=== PATIENT | female | born 1955 | race Two or more races ===

== ENCOUNTER 2021-04-17 13:14 | Inpatient (IN) | payer OTHER ==
[~2021-04-17] VITALS: Ht 160 cm; Wt 90.7 kg
[2021-04-17] MEDS ORDERED: COZAAR100 MG PO (13:44)
[2021-04-17] MEDS ORDERED: METOCLOPRAMIDE10 GM MC (13:45)
[2021-04-19] MEDS ORDERED: HYDRODIURIL12.5 MG (14:45)
[2021-04-19] MEDS ORDERED: DOXAZOSIN MESYLA1 MG (14:45)
[2021-04-19] MEDS ORDERED: HYDROCORTISONE30 G4 (14:46)
[2021-04-19] MEDS ORDERED: OMEPRAZOLE20 MG (14:46)
[2021-04-19] MEDS ORDERED: LOSARTAN-HCTZ1 EAC2 (14:46)
[2021-04-21] MEDS ORDERED: LASIX20 MG PO (16:25)
[2021-04-21] MEDS ORDERED: INTEGRA PLUS C1 EACH PO (16:25)
[2021-04-21] MEDS ORDERED: LOSARTAN POTAS100 MG PO (16:25)
[2021-04-21] MEDS ORDERED: CARdura 2MG TABLET PO (16:25)
[2021-04-21] MEDS ORDERED: ASA325 M1 PO (16:25)
== END 2021-04-21 17:18 | disposition home or self-care (01) | DRG 292 ==
LOC: ER 13:14 → MEDI 04-18 10:58
PROVIDERS: ADMIT Internal Medicine; ATTEND Internal Medicine
PROC: B24BZZZ Ultrasonography of Heart with Aorta (ICD-10-PCS; principal; 2021-04-18)
DX: I11.0 Hypertensive heart disease with heart failure (principal); J91.0 Malignant pleural effusion; C56.9 Malignant neoplasm of unspecified ovary; I50.9 Heart failure, unspecified; E66.8 Other obesity; Z20.822 Contact with and (suspected) exposure to COVID-19

== ENCOUNTER 2021-05-16 13:51 | Inpatient (IN) | payer OTHER ==
[~2021-05-16] VITALS: Ht 160 cm; Wt 90.7 kg
[~2021-05-16 13:51] MED LIST: ASA325 M1 PO; CARdura 2MG TABLET PO; COZAAR100 MG PO; DOXAZOSIN MESYLA1 MG; HYDROCORTISONE30 G4; HYDRODIURIL12.5 MG; INTEGRA PLUS C1 EACH PO; LASIX20 MG PO; LOSARTAN POTAS100 MG PO; LOSARTAN-HCTZ1 EAC2; METOCLOPRAMIDE10 GM MC; OMEPRAZOLE20 MG
[2021-05-16] MEDS ORDERED: LOSARTAN-HCTZ1 EAC2 PO (15:55)
[2021-05-17] MEDS ORDERED: INTEGRA PLUS C1 EAC1 (16:18)
== END 2021-05-31 12:12 | disposition home or self-care (01) | DRG 737 ==
LOC: O/R 05-17 06:00 → SURH 05-17 13:15 → OB/GYN 05-17 19:29
PROVIDERS: ADMIT Specialist; ATTEND Specialist
PROC: 0UT20ZZ Resection of Bilateral Ovaries, Open Approach (ICD-10-PCS; 2021-05-17)
PROC: 0UT70ZZ Resection of Bilateral Fallopian Tubes, Open Approach (ICD-10-PCS; 2021-05-17)
PROC: 07BC0ZZ Excision of Pelvis Lymphatic, Open Approach (ICD-10-PCS; 2021-05-17)
PROC: 0DBW0ZX Excision of Peritoneum, Open Approach, Diagnostic (ICD-10-PCS; 2021-05-17)
PROC: 0DTJ0ZZ Resection of Appendix, Open Approach (ICD-10-PCS; 2021-05-17)
PROC: 0UT90ZZ Resection of Uterus, Open Approach (ICD-10-PCS; principal; 2021-05-17 13:15)
PROC: 0W993ZZ Drainage of Right Pleural Cavity, Percutaneous Approach (ICD-10-PCS; 2021-05-30)
DX: C56.1 Malignant neoplasm of right ovary (principal); C77.5 Secondary and unspecified malignant neoplasm of intrapelvic lymph nodes; C78.6 Secondary malignant neoplasm of retroperitoneum and peritoneum; J91.0 Malignant pleural effusion; K56.0 Paralytic ileus; I11.0 Hypertensive heart disease with heart failure; I50.9 Heart failure, unspecified; D25.0 Submucous leiomyoma of uterus; D25.1 Intramural leiomyoma of uterus; D25.2 Subserosal leiomyoma of uterus; N72 Inflammatory disease of cervix uteri; N83.292 Other ovarian cyst, left side; E66.9 Obesity, unspecified

== ENCOUNTER 2021-12-01 13:50 | Outpatient (CLI) | payer OTHER ==
[~2021-12-01 13:50] MED LIST changes: +INTEGRA PLUS C1 EAC1; +LOSARTAN-HCTZ1 EAC2 PO
== END 2021-12-01 13:56 | disposition home or self-care (01) ==
LOC: RAD 13:50
PROVIDERS: ATTEND Internal Medicine
DX: M25.561 Pain in right knee (principal); M17.11 Unilateral primary osteoarthritis, right knee

== ENCOUNTER → 2021-12-15 | Outpatient (CLI) | payer OTHER | END | disposition home or self-care (01) | LOC: NUCLEAR 07:41 | PROVIDERS: ATTEND Internal Medicine Hematology & Oncology | DX: C56.1 Malignant neoplasm of right ovary (principal) | CPT/HCPCS: 78812; A9552 ==

== ENCOUNTER 2021-12-19 09:26 | Outpatient (CLI) | payer OTHER | END 2021-12-19 09:34 | disposition home or self-care (01) | LOC: SONOGRAMA 09:26 | PROVIDERS: ATTEND Specialist | DX: N63.11 Unspecified lump in the right breast, upper outer quadrant (principal); N63.21 Unspecified lump in the left breast, upper outer quadrant ==

== ENCOUNTER 2022-01-03 10:43 | Outpatient (CLI) | payer OTHER | END 2022-01-03 10:47 | disposition home or self-care (01) | LOC: SONOGRAMA 10:43 | PROVIDERS: ATTEND Pathology Anatomic Pathology & Clinical Pathology | DX: N63.21 Unspecified lump in the left breast, upper outer quadrant (principal) ==

== ENCOUNTER 2022-02-14 07:23 | Emergency (ER) | payer OTHER ==
[~2022-02-14] VITALS: Ht 160 cm; Wt 90.7 kg
[2022-02-14] MEDS ORDERED: ADALAT CC30 MG PO (07:41)
[2022-02-14] MEDS ORDERED: TOPROL XL100 M1 PO (07:43)
== END 2022-02-14 08:39 | disposition home or self-care (01) ==
LOC: ER 07:23
DX: H60.91 Unspecified otitis externa, right ear (principal); I10 Essential (primary) hypertension

== ENCOUNTER 2022-04-23 10:45 | Inpatient (IN) | payer OTHER ==
[~2022-04-23] VITALS: Ht 160 cm; Wt 199.6 kg
[~2022-04-23 10:45] MED LIST changes: +ADALAT CC30 MG PO; +TOPROL XL100 M1 PO
[2022-04-23] MEDS ORDERED: DOXAZOSIN MESYLA1 MG PO (11:36)
[2022-04-23] MEDS ORDERED: COZAAR100 MG (11:36)
[2022-04-23] MEDS ORDERED: [UNRECOGNIZED DRUG - OTHER] (11:36)
[2022-04-23] MEDS ORDERED: TOPROL XL25 M1 (11:37)
--- NOTE | 2022-04-23 11:40 | NUR ---
SE RECIBE PTE ALERTA Y ORIENTADA X3, CON ESPOSO. PTE VERBALIZA PRIYANKA CAERSE DE CISSE CAMA ESTA MANANA Y HERIRSE EL LADO CASSI DEL CUERPO; MERYL Y GUANAKO. SE LUIS A SV Y SE UBICA.
--- NOTE | 2022-04-23 12:58 | NUR ---
SE RECIBE PTE FEMENINA DE 66 YR ALERTA CONCIENT Y TRANQUILA . ES EVALUADA POR LA DRA. IRVING GOMEZIE ORENA TRATAMIENTO LA CUAL SE EJECUTA POR MS.K.ROSADO MAS . SE ROXANNE MEDIDAS ASEPTICAS CON PROCEDIMIENTO. SE MANTIENE BAJO OBSERVACION.
--- NOTE | 2022-04-23 16:42 | NUR ---
SE REALIZA EKG TOM ORDEN MEDICA
--- NOTE | 2022-04-23 16:51 | NUR ---
SE EDUCA A PTE SBRE TX MEDICO ESTA REFIERE ENTENDER. SE ROXANNE MUESTRAS DE LABORATORIO UTILIZANDO MEDIDAS ASEPTICA. SE COLOCA H/L A PTE Y SE ADMINISTRA MEDICAMENTO EL CUAL TOLERA. SE COLOCA BOWDEN A PTE Y SE REALIZA EKG. PTE EN ESPERA DE CONSULTA.
[2022-04-24] MEDS ORDERED: OMEPRAZOLE20 MG (10:58)
[2022-04-24] MEDS ORDERED: METOPROLOL SUC100 MG (10:58)
[2022-04-24] MEDS ORDERED: LOSARTAN-HCTZ1 EAC1 (10:58)
[2022-04-24] MEDS ORDERED: VITAMIN D310 MC5 (10:59)
[2022-04-24] MEDS ORDERED: INTEGRA PLUS C1 EACH (10:59)
[2022-04-24] MEDS ORDERED: NIFEDIPINE ER30 M1 (10:59)
[2022-04-26] MEDS ORDERED: XARELTO10 MG PO (15:20)
[2022-04-26] MEDS ORDERED: PEPCID AC20 MG PO (15:20)
[2022-04-26] MEDS ORDERED: INTEGRA F CAPS1 EACH PO (15:20)
== END 2022-04-26 19:34 | disposition home or self-care (01) | DRG 536 ==
LOC: ER 10:45 → MEDI 18:34
PROVIDERS: Orthopaedic Surgery; ADMIT Internal Medicine; ATTEND Internal Medicine
PROC: 0QS7XZZ Reposition Left Upper Femur, External Approach (ICD-10-PCS; principal; 2022-04-24 14:30)
DX: S72.142A Displaced intertrochanteric fracture of left femur, initial encounter for closed fracture (principal); I10 Essential (primary) hypertension; Z85.43 Personal history of malignant neoplasm of ovary; Z20.822 Contact with and (suspected) exposure to COVID-19; E66.8 Other obesity

== ENCOUNTER 2022-05-09 15:31 | Inpatient (IN) | payer OTHER ==
[~2022-05-09 15:31] MED LIST changes: +COZAAR100 MG; +DOXAZOSIN MESYLA1 MG PO; +INTEGRA F CAPS1 EACH PO; +INTEGRA PLUS C1 EACH; +LOSARTAN-HCTZ1 EAC1; +METOPROLOL SUC100 MG; +NIFEDIPINE ER30 M1; +PEPCID AC20 MG PO; +TOPROL XL25 M1; +VITAMIN D310 MC5; +XARELTO10 MG PO; +[UNRECOGNIZED DRUG - OTHER]
[2022-05-23] MEDS ORDERED: LOSARTAN-HCTZ1 EAC2 PO (08:45)
[2022-05-23] MEDS ORDERED: CARdura 2MG TABLET PO (08:45)
[2022-05-23] MEDS ORDERED: Procardia Xl 30MG TA PO (08:45)
[2022-05-23] MEDS ORDERED: TOPROL XL100 M1 PO (08:45)
[2022-05-23] MEDS ORDERED: TRAMADOL HCL50 MG PO (08:45)
== END 2022-05-23 11:18 | disposition home or self-care (01) | DRG 857 ==
LOC: MEDI 15:31 → SEC-K 15:31 → MEDJ 15:31 → MEDI 16:23 → MEDJ 05-11 19:33
PROVIDERS: Orthopaedic Surgery; ADMIT Internal Medicine; ATTEND Internal Medicine
PROC: 0S9B3ZZ Drainage of Left Hip Joint, Percutaneous Approach (ICD-10-PCS; 2022-05-18)
PROC: 0JDM0ZZ Extraction of Left Upper Leg Subcutaneous Tissue and Fascia, Open Approach (ICD-10-PCS; principal; 2022-05-18 07:00)
DX: T81.49XA Infection following a procedure, other surgical site, initial encounter (principal); J91.0 Malignant pleural effusion; I10 Essential (primary) hypertension; K21.9 Gastro-esophageal reflux disease without esophagitis; Z20.822 Contact with and (suspected) exposure to COVID-19; Z85.43 Personal history of malignant neoplasm of ovary

== ENCOUNTER 2022-08-14 07:34 | Outpatient (CLI) | payer OTHER ==
[~2022-08-14 07:34] MED LIST changes: +Procardia Xl 30MG TA PO; +TRAMADOL HCL50 MG PO
== END 2022-08-14 07:38 | disposition home or self-care (01) ==
LOC: NUCLEAR 07:34
PROVIDERS: ATTEND Internal Medicine Hematology & Oncology
DX: C56.1 Malignant neoplasm of right ovary (principal)
CPT/HCPCS: 78816; A9552

== ENCOUNTER 2022-08-14 11:30 | Outpatient (CLI) | payer OTHER | END 2022-08-14 11:33 | disposition home or self-care (01) | LOC: RAD 11:30 | PROVIDERS: ATTEND Orthopaedic Surgery | DX: S72.145D Nondisplaced intertrochanteric fracture of left femur, subsequent encounter for closed fracture with routine healing (principal) ==

== ENCOUNTER 2022-08-27 12:56 | Outpatient (CLI) | payer OTHER | END 2022-08-27 12:58 | disposition home or self-care (01) | LOC: NUCLEAR 12:56 | PROVIDERS: ATTEND Orthopaedic Surgery | DX: M81.0 Age-related osteoporosis without current pathological fracture (principal) ==

== ENCOUNTER 2022-09-18 09:32 | Inpatient (IN) | payer OTHER ==
[~2022-09-18] VITALS: Ht 160 cm; Wt 90.7 kg
--- NOTE | 2022-09-18 09:43 | NUR ---
PACIENTE ALERTA Y ORIENTADA POR 3 ESFERAS REFIERE PRIYANKA SIDO REFERIDA POR CISSE MEDICO DR. AGNES CRUZ POR HGB EN 7.3 G/DL. SE MIDEN SIGNOS VITALES, SE UBICA PACIENTE EN AREA DE OBSERVACION.
--- NOTE | 2022-09-18 11:04 | NUR ---
SE EDUCA PACIENTE SOBRE EL TX MEDICO UY ESTA REFIERE ENTENDER. SE CANALIZA Y SE ADMINITRA MEDS TOM ORDEN MEDICA. SE COLOCA IVF. Y SE ROXANNE MUESTRAS BAJO MEDIDAS ASEPTICAS
--- NOTE | 2022-09-18 12:55 | NUR ---
SE LLAMA A PERSONAL DE [place] A MS ABBOTT ESTA INDICA EXISTE RECORD DE PACIENTE.SE ROXANNE TUBOS PILOTOS Y SE REALIZA REQUISION DE BALAJI DE 3 UNIDADES PRBC FRACCIONADAS.
--- NOTE | 2022-09-18 15:45 | NUR ---
SE RECIBE PTE FEMENINA ALERTA Y ORIENTADA EN LAS YESENIA ESFERAS DEL TURNO ANTERIOR, CON BUEN PATRON RESPIRATORIO Y SIN QUEJA DE DOLOR. VENOPUNCION PATENTES X2, NEMO DE EDEMA Y ERITEMA EN H/L. PENDIENTE TRANSFUSION DE 3 UNIDADES DE PRBCS FRACCIONADAS, TOM ORDEN MEDICA. PTE EN ESPERA DE CONSULTA CON DR.RIVERA CRUZ YA NOTIFICADA. PTE EN CHELSEA NIVEL MAS BAJO CON BARANDAS ELEVADAS Y FRENOS COLOCADOS POR SEGURIDAD. UNIDADES DE BALAJI REQUIZADAS MONTY AUN NO ESTAN DISPONIBLES.
[2022-09-21] MEDS ORDERED: TOPROL XL100 M1 PO (14:37)
[2022-09-21] MEDS ORDERED: CARdura 2MG TABLET PO (14:37)
[2022-09-21] MEDS ORDERED: INTEGRA PLUS C1 EACH PO (14:37)
[2022-09-21] MEDS ORDERED: LOSARTAN-HCTZ1 EAC2 PO (14:37)
[2022-09-21] MEDS ORDERED: PANTOPRAZOLE SO40 MG PO (14:37)
[2022-09-21] MEDS ORDERED: B Complex PO (14:37)
[2022-09-21] MEDS ORDERED: Neurin-Sl Tablet Sl SL (14:37)
== END 2022-09-21 15:23 | disposition home or self-care (01) | DRG 812 ==
LOC: ER 09:32 → MEDI 17:25
PROVIDERS: ADMIT Internal Medicine; ATTEND Internal Medicine
PROC: 30233N1 Transfusion of Nonautologous Red Blood Cells into Peripheral Vein, Percutaneous Approach (ICD-10-PCS; 2022-09-18)
PROC: B246ZZZ Ultrasonography of Right and Left Heart (ICD-10-PCS; principal; 2022-09-19)
DX: D64.89 Other specified anemias (principal); Z85.43 Personal history of malignant neoplasm of ovary; I10 Essential (primary) hypertension

== ENCOUNTER 2022-10-07 11:16 | Inpatient (IN) | payer OTHER ==
[~2022-10-07] VITALS: Ht 160 cm; Wt 90.7 kg
[~2022-10-07 11:16] MED LIST changes: +B Complex PO; +Neurin-Sl Tablet Sl SL; +PANTOPRAZOLE SO40 MG PO
--- NOTE | 2022-10-07 11:32 | NUR ---
SE RECIBE PTE ALERTA Y ORIENTADA LA CUAL REFIERE TENER LA HEMOGLOBINA 7.0. DR. AGNES CRUZ
--- NOTE | 2022-10-07 14:05 | NUR ---
SE EDUCA A PTE SOBRE TRATAMIENTO A RECIBIR EN EL AREA RN DUVAL CANALIZA A PTE , LE REALIZA MUESTRAS DE LABORATORIO BAJO MEDIDAS ASEPTICAS, SE ENVIAN DE FORMA INMEDIATA A LAB. PTE EN ESPERA DE SEGUIMIENTO.
--- NOTE | 2022-10-07 14:18 | NUR ---
SE ENVIA TUBO PILOTOS AL LABORATOIRO
--- NOTE | 2022-10-07 15:17 | NUR ---
PACIENTE ALERT AY ORIENTADA X 3 AREADE IV NEMO DE EDEMAS Y ERITEMAS EN CAMA CON TIEMBRE ACCESIBLE.
--- NOTE | 2022-10-07 15:38 | NUR ---
SE LLAMA A [place] DE [facility] PARA ACTIVAR UNIDADES DE BALAJI ORDENADAS, SE HABLA CON . AL MOMENTO UNIDADES AUN NO ESTAN PREPARADAS.
[2022-10-10] MEDS ORDERED: INTEGRA PLUS C1 EACH PO (14:46)
[2022-10-10] MEDS ORDERED: Neurin-Sl Tablet Sl SL (14:46)
[2022-10-10] MEDS ORDERED: B Complex PO (14:46)
== END 2022-10-10 16:58 | disposition home or self-care (01) | DRG 812 ==
LOC: ER 11:16 → MEDI 17:15
PROVIDERS: ADMIT Internal Medicine; ATTEND Internal Medicine
PROC: 30243N1 Transfusion of Nonautologous Red Blood Cells into Central Vein, Percutaneous Approach (ICD-10-PCS; principal; 2022-10-07)
PROC: 4A12X4Z Monitoring of Cardiac Electrical Activity, External Approach (ICD-10-PCS; 2022-10-07)
DX: D64.9 Anemia, unspecified (principal); C56.1 Malignant neoplasm of right ovary; C78.6 Secondary malignant neoplasm of retroperitoneum and peritoneum; C78.89 Secondary malignant neoplasm of other digestive organs; E66.9 Obesity, unspecified; Z68.35 Body mass index [BMI] 35.0-35.9, adult; Z85.43 Personal history of malignant neoplasm of ovary; Z08 Encounter for follow-up examination after completed treatment for malignant neoplasm

== ENCOUNTER 2022-10-22 11:23 | Outpatient (CLI) | payer OTHER | END 2022-10-22 11:24 | disposition home or self-care (01) | LOC: LAB 11:23 | PROVIDERS: ATTEND Orthopaedic Surgery | DX: E55.9 Vitamin D deficiency, unspecified (principal); M85.9 Disorder of bone density and structure, unspecified; E56.1 Deficiency of vitamin K; E21.3 Hyperparathyroidism, unspecified; E88.89 Other specified metabolic disorders; M81.8 Other osteoporosis without current pathological fracture ==

== ENCOUNTER 2022-12-04 09:30 | Outpatient (CLI) | payer OTHER | END 2022-12-04 09:40 | disposition home or self-care (01) | LOC: MAMO-SONO 09:30 | PROVIDERS: ATTEND Specialist | DX: D48.62 Neoplasm of uncertain behavior of left breast (principal) ==

== ENCOUNTER 2023-01-31 07:53 | Outpatient (CLI) | payer OTHER | END 2023-01-31 07:55 | disposition home or self-care (01) | LOC: NUCLEAR 07:53 | PROVIDERS: ATTEND Internal Medicine Hematology & Oncology | DX: C56.9 Malignant neoplasm of unspecified ovary (principal) | CPT/HCPCS: 78815; A9552 ==

== ENCOUNTER 2023-04-12 09:05 | Outpatient (CLI) | payer OTHER ==
[2023-04-12 10:54] LABS: HEMATOCRIT 37.5 % (36.0-45.00); HEMOGLOBIN 12.5 g/dL (12.0-15.00); MEAN CELL VOLUME 85.5 fL (80.00-100.00); MEAN CORPUSCULAR HEMOGLOBIN 28.6 pg (27.00-32.0); MEAN CORPUSCULAR HGB CONC 33.4 g/dl (32.0-36.0); PLATELET COUNT 171 K/uL (150-450); RED BLOOD COUNT 4.39 M/uL (4.00-6.00); RED CELL DISTRIBUTION WIDTH 17.8 % (11.5-14.5)
[2023-04-12 11:02] LABS: CREATININE SERUM 0.8 mg/dL (0.55-1.02)
== END 2023-04-12 09:06 | disposition home or self-care (01) ==
LOC: LAB 09:05
PROVIDERS: ATTEND Internal Medicine Hematology & Oncology
DX: C56.9 Malignant neoplasm of unspecified ovary (principal)

== ENCOUNTER 2023-04-15 08:19 | Outpatient (CLI) | payer OTHER | END 2023-04-15 08:24 | disposition home or self-care (01) | LOC: TOM 08:19 | PROVIDERS: ATTEND Internal Medicine Hematology & Oncology | DX: C56.9 Malignant neoplasm of unspecified ovary (principal) | CPT/HCPCS: 71270; Q9965 ==

== ENCOUNTER 2023-08-12 13:12 | Outpatient (CLI) | payer OTHER | END 2023-08-12 13:24 | disposition home or self-care (01) | LOC: RAD 13:12 | PROVIDERS: ATTEND Orthopaedic Surgery | DX: M25.551 Pain in right hip (principal); M25.552 Pain in left hip ==

== ENCOUNTER → 2023-08-28 | Outpatient (CLI) | payer OTHER | END | disposition home or self-care (01) | LOC: NUCLEAR 07:30 | PROVIDERS: ATTEND Internal Medicine Hematology & Oncology | DX: C56.9 Malignant neoplasm of unspecified ovary (principal); C54.1 Malignant neoplasm of endometrium | CPT/HCPCS: 78815; A9552 ==

== ENCOUNTER 2024-04-29 07:12 | Outpatient (CLI) | payer OTHER | END 2024-04-29 07:13 | disposition home or self-care (01) | LOC: NUCLEAR 07:12 | DX: C54.1 Malignant neoplasm of endometrium (principal) | CPT/HCPCS: 78816; A9552 ==

== ENCOUNTER 2024-12-01 08:24 | Outpatient (CLI) | payer OTHER | END 2024-12-01 08:25 | disposition home or self-care (01) | LOC: NUCLEAR 08:24 | PROVIDERS: ATTEND Internal Medicine Hematology & Oncology | DX: C54.1 Malignant neoplasm of endometrium (principal) | CPT/HCPCS: 78815; A9552 ==

== ENCOUNTER 2024-12-07 14:13 | Emergency (ER) | payer OTHER ==
[~2024-12-07] VITALS: Ht 160 cm; Wt 90.7 kg
[2024-12-07] MEDS ORDERED: PEPCID AC20 MG PO (18:28)
[2024-12-07] MEDS ORDERED: CEFUROXIME500 MG PO (18:28)
== END 2024-12-07 18:35 | disposition home or self-care (01) ==
LOC: ER 14:13
DX: S00.511A Abrasion of lip, initial encounter (principal); W19.XXXA Unspecified fall, initial encounter; Y93.89 Activity, other specified; Y92.89 Other specified places as the place of occurrence of the external cause; Y99.8 Other external cause status; I10 Essential (primary) hypertension

== ENCOUNTER 2025-02-02 09:49 | Outpatient (CLI) | payer OTHER ==
[~2025-02-02 09:49] MED LIST changes: +CEFUROXIME500 MG PO
[2025-02-02 11:37] LABS: CREATININE SERUM 0.64 mg/dL (0.55-1.02)
== END 2025-02-02 09:53 | disposition home or self-care (01) ==
LOC: LAB 09:49
PROVIDERS: ATTEND Radiology Diagnostic Radiology
DX: C54.1 Malignant neoplasm of endometrium (principal)

== ENCOUNTER 2025-02-04 08:02 | Outpatient (CLI) | payer OTHER | END 2025-02-04 08:05 | disposition home or self-care (01) | LOC: TOM 08:02 | PROVIDERS: ATTEND Internal Medicine Hematology & Oncology | DX: C54.1 Malignant neoplasm of endometrium (principal) | CPT/HCPCS: 74178; Q9965 ==

== ENCOUNTER 2025-03-02 08:14 | Outpatient (CLI) | payer OTHER | END 2025-03-02 08:17 | disposition home or self-care (01) | LOC: RAD 08:14 | PROVIDERS: ATTEND Orthopaedic Surgery | DX: M17.12 Unilateral primary osteoarthritis, left knee (principal); M24.552 Contracture, left hip ==

== ENCOUNTER → 2025-03-02 08:57 | Outpatient (CLI) | payer OTHER ==
[2025-03-02 10:02] LABS: ALT/SGPT 27.0 U/L (12-78); AST/SGOT 20.0 U/L (15-37); BILIRUBIN TOTAL 0.74 mg/dL (0.3-1.2); BUN CREA RATIO 30.0 (7.0-25.0); CREATININE SERUM 0.89 mg/dL (0.55-1.02); GFR 62.7; GLOBULINA 3.8 G/DL (2.4-3.5); GLUCOSE FASTING 91.0 mg/dL (65-100); OSMOLALITY SERUM 290.0 MOSM/KG (275-295)
[2025-03-03 13:08] LABS: CALCIUM IONIZED 5.4 mg/dL (4.5-5.6)
== END | disposition home or self-care (01) ==
LOC: LAB 08:57
PROVIDERS: ATTEND Orthopaedic Surgery
DX: E55.9 Vitamin D deficiency, unspecified (principal); M85.9 Disorder of bone density and structure, unspecified; E56.1 Deficiency of vitamin K; E21.3 Hyperparathyroidism, unspecified; E88.9 Metabolic disorder, unspecified; M81.8 Other osteoporosis without current pathological fracture

== ENCOUNTER 2025-03-02 09:21 | Outpatient (CLI) | payer OTHER | END 2025-03-02 09:22 | disposition home or self-care (01) | LOC: NUCLEAR 09:21 | PROVIDERS: ATTEND Orthopaedic Surgery | DX: M81.0 Age-related osteoporosis without current pathological fracture (principal) ==